=== PATIENT | male | born 1935 | race Caucasian/White ===

== ENCOUNTER 2019-06-25 16:35 | Emergency (ER) | payer SELFPAY ==
[~2019-06-25] VITALS: Ht 162.6 cm; Wt 62.6 kg
[2019-06-25 16:37] VITALS: BP_SYST 181
--- NOTE | 2019-06-25 16:42 | NUR ---
Patient to ER bed 08 to gown for evaluation. Side rails up. Assisted by EMT, pt arrived sitting in walker, BIB family
--- NOTE | 2019-06-25 17:00 | NUR ---
pt arrives from home w/ c/o of left hip pain. Pt feel 8 days ago and was seen at [facility]. Pt states that he feels pain and weakness on the left hip.
--- NOTE | 2019-06-25 17:10 | NUR ---
ER at bedside examining patient.
[2019-06-25 17:30] LABS: BASOPHILS # (AUTO) 0.1 K/uL (0.0-0.2); BASOPHILS % (AUTO) 0.4 % (0.0-2.0); EOSINOPHILS # (AUTO) 0.1 K/uL (0.0-0.4); EOSINOPHILS % (AUTO) 0.8 % (0.0-4.0); HEMOGLOBIN 14.6 g/dL (14.0-18.0); LYMPHOCYTES # (AUTO) 1.3 K/uL (1.0-5.5); MEAN CORPUSCULAR HEMOGLOBIN 26 pg (27-31); MEAN CORPUSCULAR HGB CONC 33 % (32-36); MEAN CORPUSCULAR VOLUME 78 fL (79.0-98.0); MONOCYTES # (AUTO) 1.2 K/uL (0.0-1.0); MONOCYTES % (AUTO) 8.3 % (1.7-9.3); NEUTROPHILS # (AUTO) 11.9 K/uL (1.8-7.7); NEUTROPHILS % (AUTO) 81.5 % (40.0-70.0); PLATELET COUNT (AUTO) 275 K/uL (130-430); RED BLOOD CELL COUNT(AUTO) 5.61 MIL/uL (4.2-6.2); RED CELL DISTRIBUTION WIDTH 21.1 % (9.0-15.0); WHITE BLOOD COUNT (AUTO) 14.6 K/uL (4.8-10.8)
[2019-06-25 17:38] LABS: ANION GAP 7 (5-15); CALCIUM 9.1 mg/dL (8.4-11.0); CHLORIDE 102 mmol/L (98-107); CREATININE 0.84 mg/dL (0.55-1.30); GLUCOSE 126 mg/dL (70-99); POTASSIUM 3.3 mmol/L (3.5-5.1); SODIUM SERUM 138 mmol/L (136-145); UREA NITROGEN, BLOOD 18 mg/dL (8-21)
[2019-06-25 17:41] LABS: PROTHROMBIN TIME 10.5 SECS (9.5-12.5)
[2019-06-25 17:48] LABS: ALANINE AMINOTRANSFERASE 13 U/L (12-78); ALBUMIN 3.9 g/dL (3.4-4.8); ASPARTATE AMINOTRANSFERASE 10 U/L (10-37); FREE T4 (FREE THYROXINE) 1.2 ng/dl (0.8-1.5); TOTAL BILIRUBIN 0.5 mg/dL (0.0-1.0)
[2019-06-25 17:49] LABS: ALCOHOL, BLOOD < 3 mg/dL (<10)
--- NOTE | 2019-06-25 18:14 | NUR ---
Patient transported to radiology via gurney, accompanied by nuclear radiologist.
[2019-06-25] MEDS ORDERED: POTASSIUM CHLORIDE 20 MEQ TAB.PRT.SR PO ONE (18:15)
[2019-06-25 18:50] VITALS: BP_SYST 181
--- NOTE | 2019-06-25 18:59 | NUR ---
Patient given written and verbal discharge instructions and verbalizes understanding. ER MD discussed with patient the results and treatment provided. Patient in stable condition. ID arm band removed. Rx of given. Patient educated on pain management and to follow up with PMD. Pain Scale 0/10. Opportunity for questions provided and answered. Medication side effect fact sheet provided.
== END 2019-06-25 18:59 | disposition home or self-care (01) ==
LOC: SED 16:35
DX: M25.551 Pain in right hip (principal); I10 Essential (primary) hypertension; M19.90 Unspecified osteoarthritis, unspecified site
CPT/HCPCS: 36415; 71045; 72192; 74018; 80053; 82140; 83605; 83880; 84439; 84484; 85025; 85610; 87040; 93005; 99284; G0482